=== PATIENT | male | born 1970 | race Caucasian/White ===

== ENCOUNTER 2017-04-09 00:42 | Emergency (ER) | payer SELFPAY ==
[~2017-04-09] VITALS: Ht 170.2 cm; Wt 73.8 kg
[~2017-04-09 00:42] MED LIST: CEPH500C3 PO; TYLE3 PO; Z.0.NO CURRENT MEDS
[2017-04-09 00:51] VITALS: BP 134/83; PULSE 105; RESP 12; TEMP 98.2; O2SAT 97
[2017-04-09 01:10] VITALS: BP 124/85; PULSE 102; RESP 18; O2SAT 97
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
[2017-04-09] MEDS ORDERED: IBUPROFEN 800 MG TAB PO ONE (02:00)
[2017-04-09 02:19] VITALS: BP 119/66
== END 2017-04-09 02:25 | disposition home or self-care (01) ==
LOC: PHED 00:42
DX: S63.641A Sprain of metacarpophalangeal joint of right thumb, initial encounter (principal); S69.92XA Unspecified injury of left wrist, hand and finger(s), initial encounter; V28.4XXA Motorcycle driver injured in noncollision transport accident in traffic accident, initial encounter
CPT/HCPCS: 73140; 99283